=== PATIENT | female | born 1960 | race Caucasian/White ===

== ENCOUNTER 2018-07-03 09:18 | Day surgery (SDC) | payer BC ==
[~2018-07-03] VITALS: Ht 167.6 cm; Wt 94.3 kg
[2018-07-03] MEDS ORDERED: ROCURONIUM BROMIDE 10 MG/ML (ZEMURON) IV ONE (12:55)
[2018-07-03] MEDS ORDERED: SEVOFLURANE 15 MIN GAS INH ONE (12:55)
[2018-07-03] MEDS ORDERED: ONDANSETRON HCL 4 MG/2 ML VIAL IVP ONE (12:55)
[2018-07-03] MEDS ORDERED: fentaNYL CITRATE/PF 100 MCG/2 ML AMP IVP ONE (12:55)
[2018-07-03] MEDS ORDERED: LR 1,000 ML IV.SOLN IV ONE (12:55)
[2018-07-03] MEDS ORDERED: NS IRRIG SOLN 5000 ML IR ONE (12:55)
[2018-07-03] MEDS ORDERED: MIDAZOLAM HCL 5 MG/5 ML VIAL IVP ONE (12:55)
[2018-07-03] MEDS ORDERED: PROPOFOL 200MG/ 20ML VIAL (DIPRIVAN) IV ONE (12:55)
[2018-07-03] MEDS ORDERED: KETOROLAC TROMETHAMINE 30 MG VIAL IVP ONE (12:55)
[2018-07-03] MEDS ORDERED: LR 1,000 ML IV SCH (13:26)
[2018-07-03] MEDS ORDERED: MORPHINE 4 MG/ML INJ. SYRINGE IVP PRN ×3 (13:30)
[2018-07-03] MEDS ORDERED: METOCLOPRAMIDE HCL 10 MG/2 ML VIAL IVP PRN (13:30)
[2018-07-03] MEDS ORDERED: ONDANSETRON HCL 4 MG/2 ML VIAL IVP PRN (13:45)
[2018-07-03] MEDS ORDERED: IBUPROFEN 800 MG TABLET PO PRN (13:45)
[2018-07-03 17:09] VITALS: BP_SYST 120
== END 2018-07-03 15:40 | disposition home or self-care (01) ==
LOC: SDS 09:18 → SMU 09:18 → SDS 15:40
PROVIDERS: ATTEND Obstetrics & Gynecology
DX: N84.0 Polyp of corpus uteri (principal); J30.9 Allergic rhinitis, unspecified; I10 Essential (primary) hypertension; E03.9 Hypothyroidism, unspecified; Z79.899 Other long term (current) drug therapy; Z98.890 Other specified postprocedural states; Z83.3 Family history of diabetes mellitus; Z80.49 Family history of malignant neoplasm of other genital organs; F17.200 Nicotine dependence, unspecified, uncomplicated; Z68.33 Body mass index [BMI] 33.0-33.9, adult; E66.01 Morbid (severe) obesity due to excess calories; G47.33 Obstructive sleep apnea (adult) (pediatric)
CPT/HCPCS: 58558; 88305; C1819; J7120; J1885; J2250; J2405; J2704; J3010

== ENCOUNTER 2021-10-19 10:01 | Day surgery (SDC) | payer BC ==
[~2021-10-19] VITALS: Ht 167.6 cm; Wt 104.3 kg
[2021-10-19] MEDS ORDERED: CEFAZOLIN 1 GM IVPB PREMIX 50 ML IV ONE (11:50)
[2021-10-19] MEDS ORDERED: METOCLOPRAMIDE HCL 10 MG/2 ML VIAL IVP PRN (13:00)
[2021-10-19] MEDS ORDERED: LABETALOL 100 MG/ 20ML VIAL IVP PRN (13:00)
[2021-10-19] MEDS ORDERED: hydrALAZINE HCL 20 MG/ML VIAL IVP PRN (13:00)
[2021-10-19] MEDS ORDERED: LR 1,000 ML IV SCH (13:00)
[2021-10-19] MEDS ORDERED: MEPERIDINE HCL/PF 25 MG/ML DISP.SYRIN IVP PRN (13:00)
[2021-10-19] MEDS ORDERED: HYDROmorphone 1 MG/ML INJ. CARTRIDGE IVP PRN ×2 (13:00)
[2021-10-19] MEDS ORDERED: ACETAMINOPHEN I.V. 1000 MG 100 ML IV ONE (13:03)
[2021-10-19] MEDS ORDERED: HYDROcodone/ACETAMIN 5-325 MG TAB (NORCO/ VICODIN) PO PRN ×2 (13:30)
[2021-10-19] MEDS ORDERED: D5/0.45 NS 1,000 ML IV SCH (13:30)
[2021-10-19] MEDS ORDERED: MIDAZOLAM HCL 5 MG/ML VIAL (VERSED) IV ONE (13:36)
[2021-10-19] MEDS ORDERED: LR 1,000 ML IV.SOLN IV ONE (13:36)
[2021-10-19] MEDS ORDERED: PROPOFOL 200MG/ 20ML VIAL (DIPRIVAN) IV ONE (13:36)
[2021-10-19] MEDS ORDERED: KETOROLAC TROMETHAMINE 30 MG VIAL ONE (13:36)
[2021-10-19] MEDS ORDERED: ONDANSETRON HCL 4 MG/2 ML VIAL ONE (13:36)
[2021-10-19] MEDS ORDERED: LIDOCAINE HCL/PF 1% 10 ML AMPUL INJ ONE (13:36)
[2021-10-19] MEDS ORDERED: NS IRRIG SOLN 1000 ML IR ONE (13:36)
[2021-10-19] MEDS ORDERED: BUPIVACAINE /EPINEPHRINE/PF 0.25% 30 ML VIAL INJ ONE (13:36)
[2021-10-19] MEDS ORDERED: fentaNYL CITRATE/PF 100 MCG/2 ML AMP ONE (13:36)
[2021-10-19] MEDS ORDERED: SEVOFLURANE 15 MIN GAS INH ONE (13:36)
[2021-10-19] MEDS ORDERED: DEXAMETHASONE SOD PHOSPHATE 4 MG/ML VIAL ONE (13:36)
[2021-10-19 17:13] VITALS: BP_SYST 139
== END 2021-10-19 15:50 | disposition home or self-care (01) ==
LOC: SDS 10:01 → SMU 10:01 → SDS 15:50
PROVIDERS: ATTEND Colon & Rectal Surgery
DX: N60.91 Unspecified benign mammary dysplasia of right breast (principal); D24.1 Benign neoplasm of right breast; G47.33 Obstructive sleep apnea (adult) (pediatric); I10 Essential (primary) hypertension; E66.01 Morbid (severe) obesity due to excess calories; E03.9 Hypothyroidism, unspecified; M85.80 Other specified disorders of bone density and structure, unspecified site; Z79.899 Other long term (current) drug therapy
CPT/HCPCS: 19281; 19301; 36415 ×2; 87426; 87635; 88305; 88307; J0131; J0690; J1100; J1885; J2001; J2250; J2405; J2704; J3010; J3490; J7120; U0003